=== PATIENT | female | born 1995 | race Caucasian/White ===

== ENCOUNTER → 2021-02-10 08:44 | Outpatient (CLI) | payer OTHER, SELFPAY ==
[2021-02-10] MEDS: COVID-19 VACC #1, MRNA(MOD) 100 MCG/0.5 ML VIAL IM (08:53)
== END ==
PROVIDERS: Visit Provider Internal Medicine
DX: Z23 Encounter for immunization (principal)
CPT/HCPCS: 0011A; 91301

== ENCOUNTER → 2021-03-11 08:28 | Outpatient (CLI) | payer OTHER, SELFPAY ==
[2021-03-11] MEDS: COVID-19 VACC #2, MRNA(MOD) 100 MCG/0.5 ML VIAL IM (08:43)
== END ==
PROVIDERS: Visit Provider Internal Medicine
DX: Z23 Encounter for immunization (principal)
CPT/HCPCS: 0012A; 91301